=== PATIENT | male | born 1980 | race Caucasian/White ===

== ENCOUNTER 2018-08-20 06:51 | Day surgery (SDC) | payer OTHER ==
[~2018-08-20] VITALS: Ht 188 cm; Wt 111.8 kg
[2018-08-20 07:27] VITALS: BP 142/96; PULSE 78; TEMP 97.8
--- NOTE | 2018-08-20 07:33 | NUR ---
TO RM AT 0700- CALL LIGHT IN REACH NO ONE WITH PATIENT WILL CALL FRIEND FOR RIDE HOME.
[2018-08-20 09:05] VITALS: BP 130/98; PULSE 91; TEMP 97.7
--- NOTE | 2018-08-20 09:05 | NUR ---
PT ON CART FROM PROCEDURE ROOM TO BAY 6 BY NURSE. PT WALKS TO CHAIR WITH ASSISTANCE FROM CART. PT VITAL SIGNS STABLE. CALL LIGHT NEXT TO PT. PT DENIES C/O.
[2018-08-20 09:20] VITALS: BP 142/85; PULSE 86
--- NOTE | 2018-08-20 09:20 | NUR ---
PT CONTINUES TO DENY C/O. PT VITAL SIGNS STABLE. PT EATING CRACKERS AND EATING WATER AND ORANGE JUICE.
[2018-08-20 09:35] VITALS: BP 120/79; PULSE 85
--- NOTE | 2018-08-20 10:28 | NUR ---
PT CONTINUES TO DENY C/O. PT VITAL SIGNS STABLE. DISCHARGE INSTRUCTIONS REVIEWED WITH PT. PT VERBALIZES UNDERSTANDING. PT WHEELCHAIR RIDE TO CAR WITH CRYPTOLOGIC LINGUIST.
== END 2018-08-20 09:35 | disposition home or self-care (01) ==
LOC: SDCO 06:51
DX: K92.1 Melena (principal); K64.0 First degree hemorrhoids; R10.9 Unspecified abdominal pain; R14.0 Abdominal distension (gaseous)
CPT/HCPCS: OP; J2250; J2405; J3010; J7030

== ENCOUNTER 2019-09-12 17:18 | Emergency (ER) | payer OTHER ==
[~2019-09-12] VITALS: Ht 188 cm; Wt 112.3 kg
[2019-09-12 18:04] VITALS: TEMP 97.2
[2019-09-12] MEDS ORDERED: CEPHALEXIN500 M1 PO (21:14)
[2019-09-12] MEDS ORDERED: NORCO 325 MG-51 TAB PO (21:14)
[2019-09-12 22:10] VITALS: BP 135/97; PULSE 83
== END 2019-09-12 22:10 | disposition home or self-care (01) ==
LOC: COL.ER 17:18
DX: S62.624B Displaced fracture of middle phalanx of right ring finger, initial encounter for open fracture (principal); S66.324A Laceration of extensor muscle, fascia and tendon of right ring finger at wrist and hand level, initial encounter; W45.8XXA Other foreign body or object entering through skin, initial encounter; Y92.009 Unspecified place in unspecified non-institutional (private) residence as the place of occurrence of the external cause

== ENCOUNTER 2019-09-14 08:25 | Day surgery (SDC) | payer OTHER ==
[~2019-09-14] VITALS: Ht 188 cm; Wt 114.6 kg
[~2019-09-14 08:25] MED LIST: CEPHALEXIN500 M1 PO; NORCO 325 MG-51 TAB PO
[2019-09-14] MEDS ORDERED: CEPHALEXIN500 M1 PO (08:57)
[2019-09-14] MEDS ORDERED: NORCO 325 MG-51 TAB PO (08:57)
[2019-09-14 09:10] VITALS: BP 134/93; PULSE 72; TEMP 97.9
[2019-09-14 12:00] VITALS: BP 134/90; PULSE 83; TEMP 98.8
[2019-09-14 12:15] VITALS: BP 129/87; PULSE 81
[2019-09-14 12:30] VITALS: BP 126/89; PULSE 80
[2019-09-14 12:45] VITALS: BP 130/73; PULSE 83
== END 2019-09-14 13:05 | disposition home or self-care (01) ==
LOC: SDCO 08:25
DX: S62.624A Displaced fracture of middle phalanx of right ring finger, initial encounter for closed fracture (principal); Z91.030 Bee allergy status
CPT/HCPCS: J0690; J2405; J2704; J3010; J7120